=== PATIENT | female | born 1960 | race Caucasian/White ===

== ENCOUNTER 2018-03-30 06:35 | Day surgery (SDC) | payer MEDICARE ==
[2018-03-30] MEDS ORDERED: DIPRIVAN 200 MG/20 ML IV ONE (06:36)
[2018-03-30] MEDS ORDERED: Ketamine HCl 50 MG/ML IV ONE (06:36)
[2018-03-30] MEDS ORDERED: Lactated Ringers 1,000 ML IV SCH (07:30)
--- NOTE | 2018-03-30 09:02 | OP ---
SURGERY DATE/TIME: 03/30/2018812 PREOPERATIVE DIAGNOSIS: Dysphagia particularly to solids and vomiting, history of pancreatitis. POSTOPERATIVE DIAGNOSIS: Gastritis. PROCEDURE: Esophagogastroduodenoscopy with biopsy. SURGEON: Dr. Tian. ANESTHESIA: Medications were given by the anesthesia department. BRIEF HISTORY: The patient is a 57 year old white female presenting now for epigastric pain and complaints of dysphagia both in the throat and deep in the chest. The patient reports a history of pancreatitis. She does also complain of Crohn's colitis and takes aspirin on a regular basis. The patient was suggested to have endoscopic evaluation and she was appraised of the risks of the procedure including the risk of perforation, phlebitis, untoward reaction to medication, bleeding and missed lesions. The patient verbalized her understanding and desired to have the procedure performed. DESCRIPTION OF PROCEDURE: The patient was given the medications by the anesthesia department. She had continuous pulse oximetry, ECG monitoring, intermittent blood pressure monitoring and tidal CO2 monitoring during the examination. She was placed in the left lateral decubitus position. A bite block was placed. A flexible Olympus gastroscope was used to intubate the oropharynx. A view of the esophagus was normal throughout its length. The stomach was entered where normal gastric rugal folds were seen. There was a generalized erythema throughout the stomach. No erosions or ulcerations were noted. The scope was passed along the greater curvature of the stomach to the antrum. The pylorus was encountered and intubated. Duodenum inspected and found to be normal. The scope was withdrawn towards the stomach. Again, a retroflex view was obtained of the lesser curvature, fundus and cardia regions of the stomach and these appeared to be normal. The scope was then redirected towards the gastric antrum. Biopsies obtained to rule out the presence of Helicobacter pylori-type organisms. The scope was then removed from the patient who tolerated the procedure well and was sent back to outpatient recovery in good condition.
[2018-03-30 09:04] VITALS: O2SAT 98
[2018-03-30 09:36] VITALS: BP 133/78; PULSE 94
[2018-03-30] MEDS ORDERED: Sodium Chloride 0.9% 10 ML FLUSH Syringe PORT FLUSH PRN (09:47)
== END 2018-03-30 11:15 | disposition home or self-care (01) ==
LOC: SDC 06:35
PROVIDERS: ATTEND Family Medicine
DX: K29.70 Gastritis, unspecified, without bleeding (principal); R13.10 Dysphagia, unspecified; Z86.39 Personal history of other endocrine, nutritional and metabolic disease
CPT/HCPCS: 88305; J1642; J2704

== ENCOUNTER 2018-07-04 12:40 | Day surgery (SDC) | payer MEDICARE ==
[2012-11-09 10:35] VITALS: BP 129/87
[2018-07-04] MEDS ORDERED: Xylocaine 1% Vial 30 ML PF IJ ONE (12:41)
[2018-07-04] MEDS ORDERED: Depo-Medrol 40 MG/ML IM ONE (12:41)
[2018-07-04] MEDS ORDERED: Marcaine 0.5% SDV 10 ML IJ ONE (12:41)
--- NOTE | 2018-07-04 15:30 | XRAY ---
13 seconds of fluoroscopy was used in surgery for bilateral sacroiliac joint injection.
--- NOTE | 2018-07-04 15:32 | XRAY ---
Indication: Bilateral SI joint injection. Intraoperative fluoroscopy was provided for 13 seconds. 4 digital spot images submitted for interpretation demonstrates posterior needle tips projecting over the inferior left and right SI joints. Correlate with intraoperative findings/report.
== END 2018-07-04 14:17 | disposition home or self-care (01) ==
LOC: SDC-PAIN 12:40
PROVIDERS: ATTEND Psychiatry & Neurology Pain Medicine
DX: M46.1 Sacroiliitis, not elsewhere classified (principal); E03.9 Hypothyroidism, unspecified; M10.9 Gout, unspecified; F31.9 Bipolar disorder, unspecified; I10 Essential (primary) hypertension; J45.909 Unspecified asthma, uncomplicated; F41.8 Other specified anxiety disorders; K50.90 Crohn's disease, unspecified, without complications; K86.1 Other chronic pancreatitis; K44.9 Diaphragmatic hernia without obstruction or gangrene; I25.10 Atherosclerotic heart disease of native coronary artery without angina pectoris; Z79.899 Other long term (current) drug therapy
CPT/HCPCS: 72202; 77002; G0260; 27096; J1030; J2001

== ENCOUNTER 2018-09-12 14:28 | Day surgery (SDC) | payer MEDICARE ==
[2012-11-09 10:35] VITALS: BP 129/87
[2018-09-12] MEDS ORDERED: Marcaine 0.5% SDV 10 ML IJ ONE (14:29)
[2018-09-12] MEDS ORDERED: Xylocaine 1% Vial 30 ML PF IJ ONE (14:29)
[2018-09-12] MEDS ORDERED: Depo-Medrol 40 MG/ML IM ONE (14:29)
[2018-09-12] MEDS ORDERED: Lactated Ringers 1,000 ML IV ONE (16:36)
--- NOTE | 2018-09-12 16:46 | XRAY ---
Indication: Bilateral SI joint injection. Intraoperative fluoroscopy was provided for 12 seconds. 4 digital spot images submitted for interpretation demonstrates posterior needle tips projecting over the inferior left and right SI joints. Correlate with intraoperative findings/report.
--- NOTE | 2018-09-12 16:51 | XRAY ---
12 seconds fluoroscopy time in surgery for bilateral S-I joints.
== END 2018-09-12 15:43 | disposition home or self-care (01) ==
LOC: SDC-PAIN 14:28
PROVIDERS: ATTEND Psychiatry & Neurology Pain Medicine
DX: M46.1 Sacroiliitis, not elsewhere classified (principal); E03.9 Hypothyroidism, unspecified; M10.9 Gout, unspecified; F31.9 Bipolar disorder, unspecified; F41.8 Other specified anxiety disorders; I10 Essential (primary) hypertension; I25.10 Atherosclerotic heart disease of native coronary artery without angina pectoris; K50.90 Crohn's disease, unspecified, without complications; J45.909 Unspecified asthma, uncomplicated; K44.9 Diaphragmatic hernia without obstruction or gangrene; Z79.899 Other long term (current) drug therapy
CPT/HCPCS: 27096; 72202; 77002; J1030; J2001; G0260

== ENCOUNTER 2018-10-03 13:01 | Day surgery (SDC) | payer MEDICARE ==
[2012-11-09 10:35] VITALS: BP 129/87
[2018-10-03] MEDS ORDERED: Depo-Medrol 40 MG/ML IM ONE (13:02)
[2018-10-03] MEDS ORDERED: Xylocaine 1% Vial 30 ML PF IJ ONE (13:02)
[2018-10-03] MEDS ORDERED: Xylocaine-Mpf 2% 5 Ml Vial IJ ONE (13:02)
--- NOTE | 2018-10-03 16:04 | XRAY ---
Indication: Bilateral L4-S1 MBB. Intraoperative fluoroscopy was provided for 19 seconds. Single digital spot image submitted for interpretation demonstrates posterior needle tips projecting over the expected course of the left and right L4-S1 nerve roots. Correlate with intraoperative findings/report.
--- NOTE | 2018-10-03 16:10 | XRAY ---
19 seconds fluoroscopy time in surgery for bilateral L4-S1 MBB.
== END 2018-10-03 14:32 | disposition home or self-care (01) ==
LOC: SDC-PAIN 13:01
PROVIDERS: ATTEND Psychiatry & Neurology Pain Medicine
DX: M47.816 Spondylosis without myelopathy or radiculopathy, lumbar region (principal); E03.9 Hypothyroidism, unspecified; M10.9 Gout, unspecified; F31.9 Bipolar disorder, unspecified; F41.8 Other specified anxiety disorders; I10 Essential (primary) hypertension; K86.1 Other chronic pancreatitis; J45.909 Unspecified asthma, uncomplicated; K44.9 Diaphragmatic hernia without obstruction or gangrene; I25.10 Atherosclerotic heart disease of native coronary artery without angina pectoris; K51.90 Ulcerative colitis, unspecified, without complications
CPT/HCPCS: 64493; 64494; 72020; 77002; J1030; J2001

== ENCOUNTER 2018-10-31 14:48 | Day surgery (SDC) | payer MEDICARE ==
[2012-11-09 10:35] VITALS: BP 129/87
[2018-10-31] MEDS ORDERED: Xylocaine 1% Vial 30 ML PF IJ ONE (14:49)
[2018-10-31] MEDS ORDERED: Marcaine 0.5% SDV 10 ML IJ ONE (14:49)
[2018-10-31] MEDS ORDERED: Depo-Medrol 40 MG/ML IM ONE (14:49)
--- NOTE | 2018-11-01 08:35 | XRAY ---
16 seconds fluoroscopy time in surgery for bilateral L4-S1 MBB.
== END 2018-10-31 17:17 | disposition home or self-care (01) ==
LOC: SDC-PAIN 14:48
PROVIDERS: ATTEND Psychiatry & Neurology Pain Medicine
DX: M47.816 Spondylosis without myelopathy or radiculopathy, lumbar region (principal); E03.9 Hypothyroidism, unspecified; M10.9 Gout, unspecified; I10 Essential (primary) hypertension; J45.909 Unspecified asthma, uncomplicated; F41.8 Other specified anxiety disorders; K86.1 Other chronic pancreatitis; I25.10 Atherosclerotic heart disease of native coronary artery without angina pectoris; F31.9 Bipolar disorder, unspecified; Z79.899 Other long term (current) drug therapy
CPT/HCPCS: 72020; 77002; J1030; J2001

== ENCOUNTER 2018-12-05 12:04 | Day surgery (SDC) | payer MEDICARE ==
[2012-11-09 10:35] VITALS: BP 129/87
[2018-12-05] MEDS ORDERED: Xylocaine 1% Vial 30 ML PF IJ ONE (12:05)
[2018-12-05] MEDS ORDERED: Marcaine 0.5% SDV 10 ML IJ ONE (12:05)
[2018-12-05] MEDS ORDERED: Depo-Medrol 40 MG/ML IM ONE (12:05)
[2018-12-05] MEDS ORDERED: Lactated Ringers 1,000 ML IV ONE (12:51)
--- NOTE | 2018-12-05 15:06 | XRAY ---
Indication: Right L4-S1 RFA. Intraoperative fluoroscopy was provided for 20 seconds. 3 digital spot images submitted for interpretation demonstrate posterior needle tips projecting over the expected course of the right L4-S1 nerve roots. Correlate with intraoperative findings/report.
--- NOTE | 2018-12-05 15:52 | XRAY ---
20 seconds fluoroscopy time in surgery for right L4-S1 RFA.
== END 2018-12-05 13:50 | disposition home or self-care (01) ==
LOC: SDC-PAIN 12:04
PROVIDERS: ATTEND Psychiatry & Neurology Pain Medicine
DX: M47.816 Spondylosis without myelopathy or radiculopathy, lumbar region (principal); E03.9 Hypothyroidism, unspecified; M10.9 Gout, unspecified; I10 Essential (primary) hypertension; K86.1 Other chronic pancreatitis; F41.8 Other specified anxiety disorders; K44.9 Diaphragmatic hernia without obstruction or gangrene; J45.909 Unspecified asthma, uncomplicated; K51.90 Ulcerative colitis, unspecified, without complications; F31.9 Bipolar disorder, unspecified; Z79.899 Other long term (current) drug therapy
CPT/HCPCS: 64635; 64636; 72100; 77002; J1030; J1642; J2001

== ENCOUNTER 2019-01-09 15:10 | Day surgery (SDC) | payer MEDICARE ==
[2012-11-09 10:35] VITALS: BP 129/87
[2019-01-09] MEDS ORDERED: Marcaine 0.5% SDV 10 ML IJ ONE (15:11)
[2019-01-09] MEDS ORDERED: Xylocaine 1% Vial 30 ML PF IJ ONE (15:11)
[2019-01-09] MEDS ORDERED: Depo-Medrol 40 MG/ML IM ONE (15:11)
[2019-01-09] MEDS ORDERED: Lactated Ringers 1,000 ML IV ONE (18:23)
--- NOTE | 2019-01-09 19:27 | XRAY ---
Indication: Left L4-S1 RFA. Intraoperative fluoroscopy was provided for 16 seconds. 4 digital spot images submitted for interpretation demonstrates posterior needle tips projecting over the expected course of the left L4-S1 nerve roots. Correlate with intraoperative findings/report.
--- NOTE | 2019-01-09 19:39 | XRAY ---
16 seconds fluoroscopy time in surgery for left L4-S1 RFA.
== END 2019-01-09 17:43 | disposition home or self-care (01) ==
LOC: SDC-PAIN 15:10
PROVIDERS: ATTEND Psychiatry & Neurology Pain Medicine
DX: M47.816 Spondylosis without myelopathy or radiculopathy, lumbar region (principal); I10 Essential (primary) hypertension; E03.9 Hypothyroidism, unspecified; M10.9 Gout, unspecified; F31.9 Bipolar disorder, unspecified; F41.8 Other specified anxiety disorders; K50.90 Crohn's disease, unspecified, without complications; K86.1 Other chronic pancreatitis; K44.9 Diaphragmatic hernia without obstruction or gangrene; K51.90 Ulcerative colitis, unspecified, without complications; Z79.899 Other long term (current) drug therapy
CPT/HCPCS: 64635; 64636; 72100; 77002; J1030; J1642; J2001

== ENCOUNTER 2019-03-20 12:38 | Day surgery (SDC) | payer MEDICARE ==
[2012-11-09 10:35] VITALS: BP 129/87
[2019-03-20] MEDS ORDERED: Marcaine 0.5% SDV 10 ML IJ ONE (12:39)
[2019-03-20] MEDS ORDERED: Depo-Medrol 40 MG/ML IM ONE (12:39)
[2019-03-20] MEDS ORDERED: Xylocaine 1% Vial 30 ML PF IJ ONE (12:39)
--- NOTE | 2019-03-20 16:48 | XRAY ---
Indication: Bilateral SI joint injection. Intraoperative fluoroscopy was provided for 12 seconds. 5 digital spot images submitted for interpretation demonstrates posterior needle tips projecting over the inferior left and right SI joints. Correlate with intraoperative findings/report.
--- NOTE | 2019-03-20 16:51 | XRAY ---
12 seconds fluoroscopy time in surgery for bilateral SI joint injections.
== END 2019-03-20 14:46 | disposition home or self-care (01) ==
LOC: SDC-PAIN 12:38
PROVIDERS: ATTEND Psychiatry & Neurology Pain Medicine
DX: M46.1 Sacroiliitis, not elsewhere classified (principal); M54.12 Radiculopathy, cervical region; E03.9 Hypothyroidism, unspecified; M10.9 Gout, unspecified; F31.9 Bipolar disorder, unspecified; F41.8 Other specified anxiety disorders; K50.90 Crohn's disease, unspecified, without complications; K86.1 Other chronic pancreatitis; I10 Essential (primary) hypertension; J45.909 Unspecified asthma, uncomplicated; K44.9 Diaphragmatic hernia without obstruction or gangrene; Z79.899 Other long term (current) drug therapy
CPT/HCPCS: 27096; 72202; 77002; J1030; J2001; G0260

== ENCOUNTER 2019-04-17 12:28 | Day surgery (SDC) | payer MEDICARE ==
[2012-11-09 10:35] VITALS: BP 129/87
[2019-04-17] MEDS ORDERED: Xylocaine 1% Vial 30 ML PF IJ ONE (12:29)
[2019-04-17] MEDS ORDERED: Depo-Medrol 40 MG/ML IM ONE (12:29)
[2019-04-17] MEDS ORDERED: Marcaine 0.5% SDV 10 ML IM ONE (12:29)
[2019-04-17] MEDS ORDERED: Lactated Ringers 1,000 ML IV ONE (14:04)
--- NOTE | 2019-04-17 15:22 | XRAY ---
Indication: Right SI joint RFA. Intraoperative fluoroscopy was provided for 42 seconds. 3 digital spot images submitted for interpretation demonstrates 4 posterior needle tips projecting over the right sacrum. Correlate with intraoperative findings/report.
--- NOTE | 2019-04-17 16:43 | XRAY ---
42 seconds fluoroscopy time in surgery for cervical BERTRAM.
== END 2019-04-17 14:00 | disposition home or self-care (01) ==
LOC: SDC-PAIN 12:28
PROVIDERS: ATTEND Psychiatry & Neurology Pain Medicine
DX: M46.1 Sacroiliitis, not elsewhere classified (principal); E03.9 Hypothyroidism, unspecified; I10 Essential (primary) hypertension; M10.9 Gout, unspecified; F31.9 Bipolar disorder, unspecified; F41.8 Other specified anxiety disorders; K86.1 Other chronic pancreatitis; J45.909 Unspecified asthma, uncomplicated; I25.10 Atherosclerotic heart disease of native coronary artery without angina pectoris; Z79.899 Other long term (current) drug therapy
CPT/HCPCS: 64625; 72202; 77002; J1030; J1642; J2001

== ENCOUNTER 2020-01-01 11:01 | Day surgery (SDC) | payer MEDICARE ==
[2012-11-09 10:35] VITALS: BP 129/87
[2020-01-01] MEDS ORDERED: Depo-Medrol 40 MG/ML IM ONE (11:02)
[2020-01-01] MEDS ORDERED: BUPIVACAINE 0.5% VIAL IJ ONE (11:02)
[2020-01-01] MEDS ORDERED: Sodium Chloride 0.9% 10 ML FLUSH Syringe PORT FLUSH PRN (12:59)
--- NOTE | 2020-01-01 14:02 | XRAY ---
Indication: Bilateral L4-S1 MBB. Intraoperative fluoroscopy was provided for 15 seconds. Single digital spot image submitted for interpretation demonstrates posterior needle tips projecting over the expected left and right L4-S1 nerve roots. Correlate with intraoperative findings/report.
--- NOTE | 2020-01-01 14:07 | XRAY ---
15 seconds fluoroscopy time in surgery for bilateral SI joint injections.
== END 2020-01-01 12:37 | disposition home or self-care (01) ==
LOC: SDC-PAIN 11:01
PROVIDERS: ATTEND Psychiatry & Neurology Pain Medicine
DX: M47.816 Spondylosis without myelopathy or radiculopathy, lumbar region (principal); E03.9 Hypothyroidism, unspecified; M10.9 Gout, unspecified; F31.9 Bipolar disorder, unspecified; K50.90 Crohn's disease, unspecified, without complications; K86.1 Other chronic pancreatitis; I10 Essential (primary) hypertension; I25.10 Atherosclerotic heart disease of native coronary artery without angina pectoris; Z79.899 Other long term (current) drug therapy
CPT/HCPCS: 64493; 64494; 72020; 77002; 96523; J1030; J1642

== ENCOUNTER 2020-03-25 13:49 | Day surgery (SDC) | payer MEDICARE ==
[2012-11-09 10:35] VITALS: BP 129/87
[2020-03-25] MEDS ORDERED: Xylocaine 1% Vial 30 ML PF IJ ONE (13:50)
[2020-03-25] MEDS ORDERED: Depo-Medrol 40 MG/ML IM ONE (13:50)
[2020-03-25] MEDS ORDERED: Sodium Chloride 0.9(Preservative Free) 10 ML IJ ONE (13:50)
--- NOTE | 2020-03-25 16:45 | XRAY ---
Indication: Right L4-S1 transforaminal BERTRAM. Intraoperative fluoroscopy provided for 26 seconds. 4 digital spot images submitted for interpretation demonstrates posterior needle tips projecting over the expected right L4 and L5 nerve roots. Small amount of contrast injected for needle tip placement. Correlate with intraoperative findings/report.
--- NOTE | 2020-03-25 16:45 | XRAY ---
26 seconds of fluoroscopy was used in surgery for a right L4-L5 and L5-S1 transforaminal BERTRAM.
== END 2020-03-25 16:15 | disposition home or self-care (01) ==
LOC: SDC-PAIN 13:49
PROVIDERS: ATTEND Psychiatry & Neurology Pain Medicine
DX: M54.16 Radiculopathy, lumbar region (principal); I10 Essential (primary) hypertension; I25.10 Atherosclerotic heart disease of native coronary artery without angina pectoris; E03.9 Hypothyroidism, unspecified; M10.9 Gout, unspecified; F31.9 Bipolar disorder, unspecified; K50.90 Crohn's disease, unspecified, without complications; K86.1 Other chronic pancreatitis; J45.909 Unspecified asthma, uncomplicated; K44.9 Diaphragmatic hernia without obstruction or gangrene; Z79.899 Other long term (current) drug therapy
CPT/HCPCS: 64483; 64484; 72100; 77003; J1030; J2001; Q9966

== ENCOUNTER 2020-05-20 13:40 | Day surgery (SDC) | payer MEDICARE ==
[2012-11-09 10:35] VITALS: BP 129/87
[2020-05-20] MEDS ORDERED: BUPIVACAINE 0.5% VIAL IJ ONE (13:41)
[2020-05-20] MEDS ORDERED: Decadron 4 MG INJ IV ONE (13:41)
[2020-05-20] MEDS ORDERED: Depo-Medrol 40 MG/ML IM ONE (13:41)
[2020-05-20] MEDS ORDERED: Xylocaine 1% Vial 30 ML PF IJ ONE (13:41)
--- NOTE | 2020-05-20 17:11 | XRAY ---
24 seconds of fluoroscopy was used in surgery for a right SI joint and right piriformis muscle injection.
--- NOTE | 2020-05-20 17:16 | XRAY ---
Indication: Right SI joint and piriformis muscle injection. Intraoperative fluoroscopy provided for 24 seconds. 3 digital spot images submitted for interpretation demonstrates posterior needle tip projecting over the inferior right SI joint. Second needle tip projects over the expected right piriformis muscle with small amount of contrast injected for needle tip placement. Correlate with intraoperative findings/report.
== END 2020-05-20 16:11 | disposition home or self-care (01) ==
LOC: SDC-PAIN 13:40
PROVIDERS: ATTEND Psychiatry & Neurology Pain Medicine
DX: M46.1 Sacroiliitis, not elsewhere classified (principal); M60.9 Myositis, unspecified; E03.9 Hypothyroidism, unspecified; M10.9 Gout, unspecified; I10 Essential (primary) hypertension; I25.10 Atherosclerotic heart disease of native coronary artery without angina pectoris; K50.90 Crohn's disease, unspecified, without complications; K44.9 Diaphragmatic hernia without obstruction or gangrene; J45.909 Unspecified asthma, uncomplicated; Z79.899 Other long term (current) drug therapy; K86.1 Other chronic pancreatitis
CPT/HCPCS: 20552; 27096; 72202; 77002; G0260; J1030; J1100; J2001; Q9966

== ENCOUNTER 2020-08-12 10:34 | Day surgery (SDC) | payer MEDICARE ==
[2012-11-09 10:35] VITALS: BP 129/87
[2020-08-12] MEDS ORDERED: LIDOCAINE HCL 2% 100 MG/5 ML IJ ONE (10:35)
[2020-08-12] MEDS ORDERED: DIPRIVAN 200 MG/20 ML IV ONE (10:35)
--- NOTE | 2020-08-12 14:57 | XRAY ---
Indication: Right C2-C5 MBB. Intraoperative fluoroscopy provided for 20 seconds. 2 digital spot images submitted for interpretation demonstrates posterior needle tips projecting over the expected right C2-C5 nerve roots. Correlate with intraoperative findings/report.
--- NOTE | 2020-08-12 15:06 | XRAY ---
20 seconds of fluoroscopy was used in surgery for a right C2-C3, C3-C4, C4-C5 MBB.l
[2020-08-12] MEDS ORDERED: Lactated Ringers 1,000 ML IV ONE (16:02)
== END 2020-08-12 12:10 | disposition home or self-care (01) ==
LOC: SDC-PAIN 10:34
PROVIDERS: ATTEND Psychiatry & Neurology Pain Medicine
DX: M47.812 Spondylosis without myelopathy or radiculopathy, cervical region (principal); E03.9 Hypothyroidism, unspecified; M10.9 Gout, unspecified; F41.9 Anxiety disorder, unspecified; F32.9 Major depressive disorder, single episode, unspecified; K86.1 Other chronic pancreatitis; I10 Essential (primary) hypertension; I25.10 Atherosclerotic heart disease of native coronary artery without angina pectoris; Z79.899 Other long term (current) drug therapy
CPT/HCPCS: 64490; 64491; 64492; 72040; 77002; J1642; J2704

== ENCOUNTER 2021-02-17 14:22 | Day surgery (SDC) | payer MEDICARE ==
[2012-11-09 10:35] VITALS: BP 129/87
[2021-02-17] MEDS ORDERED: BUPIVACAINE 0.5% VIAL IJ ONE (14:23)
[2021-02-17] MEDS ORDERED: Xylocaine 1% Vial 30 ML PF IJ ONE (14:23)
[2021-02-17] MEDS ORDERED: Depo-Medrol 40 MG/ML IM ONE (14:23)
--- NOTE | 2021-02-17 18:44 | XRAY ---
Indication: Left L4-S1 RFA. Intraoperative fluoroscopy provided for 23 seconds. 3 digital spot image submitted for interpretation demonstrates posterior needle tips projecting over the expected left L4-S1 nerve roots. Correlate with intraoperative findings/report.
--- NOTE | 2021-02-18 09:17 | XRAY ---
23 seconds fluoroscopy time in surgery for left L4-S1 RFA.
== END 2021-02-17 16:28 | disposition home or self-care (01) ==
LOC: SDC-PAIN 14:22
PROVIDERS: ATTEND Psychiatry & Neurology Pain Medicine
DX: M47.816 Spondylosis without myelopathy or radiculopathy, lumbar region (principal); Z79.899 Other long term (current) drug therapy
CPT/HCPCS: 64635; 64636; 72100; 77002; J1030; J1642; J2001

== ENCOUNTER 2021-02-24 13:12 | Day surgery (SDC) | payer MEDICARE ==
[2012-11-09 10:35] VITALS: BP 129/87
[2021-02-24] MEDS ORDERED: BUPIVACAINE 0.5% VIAL IJ ONE (13:13)
[2021-02-24] MEDS ORDERED: Xylocaine 1% Vial 30 ML PF IJ ONE (13:13)
[2021-02-24] MEDS ORDERED: Depo-Medrol 40 MG/ML IM ONE (13:13)
[2021-02-24] MEDS ORDERED: Lactated Ringers 1,000 ML IV ONE (15:29)
--- NOTE | 2021-02-24 17:00 | XRAY ---
Indication: Right L4-S1 RFA. Intraoperative fluoroscopy provided for 24 seconds. 3 digital spot image submitted for interpretation demonstrates posterior needle tips projecting over the expected right L4-S1 nerve roots. Correlate with intraoperative findings/report.
--- NOTE | 2021-02-24 17:05 | XRAY ---
24 seconds of fluoroscopy was used in surgery for a right L4-S1 RFA.
== END 2021-02-24 16:30 | disposition home or self-care (01) ==
LOC: SDC-PAIN 13:12
PROVIDERS: ATTEND Psychiatry & Neurology Pain Medicine
DX: M47.816 Spondylosis without myelopathy or radiculopathy, lumbar region (principal); I10 Essential (primary) hypertension; Z79.899 Other long term (current) drug therapy
CPT/HCPCS: 64635; 64636; 72100; 77002; J1030; J1642; J2001

== ENCOUNTER 2021-12-01 15:53 | Day surgery (SDC) | payer MEDICARE, SELFPAY ==
[2012-11-09 10:35] VITALS: BP 129/87
[2021-12-01] MEDS ORDERED: Sodium Chloride 0.9(Preservative Free) 10 ML IJ ONE (15:54)
[2021-12-01] MEDS ORDERED: Decadron 4 MG INJ IV ONE (15:54)
[2021-12-01] MEDS ORDERED: XYLOCAINE-MPF 1% 5ML SDV IJ ONE (15:54)
[2021-12-01] MEDS ORDERED: Lactated Ringers 1,000 ML IV ONE (17:43)
--- NOTE | 2021-12-01 19:43 | XRAY ---
Indication: Cervical BERTRAM. Intraoperative fluoroscopy provided for 34 seconds. 4 digital spot images submitted for interpretation demonstrates posterior needle tip projecting just posterior to cervical thoracic junction. Small amount of contrast injected for needle tip placement. Correlate with intraoperative findings/report.
--- NOTE | 2021-12-02 10:58 | XRAY ---
34 seconds of fluoroscopy was used in surgery for a cervical BERTRAM.
== END 2021-12-01 18:15 | disposition home or self-care (01) ==
LOC: SDC-PAIN 15:53
PROVIDERS: ATTEND Psychiatry & Neurology Pain Medicine
DX: M54.12 Radiculopathy, cervical region (principal); Z79.899 Other long term (current) drug therapy
CPT/HCPCS: 62321; 72040; 77003; J1100; J1642; Q9966

== ENCOUNTER 2022-05-25 07:41 | Day surgery (SDC) | payer MEDICARE ==
[2012-11-09 10:35] VITALS: BP 129/87
[2022-05-25] MEDS ORDERED: Decadron 4 MG INJ IV ONE (07:42)
[2022-05-25] MEDS ORDERED: XYLOCAINE 1% HCL 20 ML MDV IJ ONE (07:42)
--- NOTE | 2022-05-25 10:22 | XRAY ---
Indication: Right piriformis injection. Intraoperative fluoroscopy provided for 11 seconds. Single digital spot image submitted for interpretation demonstrates posterior needle tip projecting over the expected right piriformis muscle. Small amount of contrast injected for needle tip placement. Correlate with intraoperative findings/report.
--- NOTE | 2022-05-25 12:44 | XRAY ---
11 seconds of fluoroscopy was used in surgery for a right piriformis injection.
[2022-05-25] MEDS ORDERED: Lactated Ringers 1,000 ML IV ONE (13:12)
== END 2022-05-25 09:10 | disposition home or self-care (01) ==
LOC: SDC-PAIN 07:41
PROVIDERS: ATTEND Psychiatry & Neurology Pain Medicine
DX: M79.18 Myalgia, other site (principal)
CPT/HCPCS: 20553; 72170; 77002; J1100; Q9966

== ENCOUNTER 2022-06-29 15:46 | Day surgery (SDC) | payer MEDICARE ==
[2012-11-09 10:35] VITALS: BP 129/87
[2022-06-29] MEDS ORDERED: BUPIVACAINE 0.5% VIAL IJ ONE (15:47)
[2022-06-29] MEDS ORDERED: Depo-Medrol 40 MG/ML IM ONE (15:47)
[2022-06-29] MEDS ORDERED: LIDOCAINE HCL 1% 50 MG/5 ML VL PF IJ ONE (15:47)
[2022-06-29] MEDS ORDERED: Lactated Ringers 1,000 ML IV ONE (16:51)
--- NOTE | 2022-06-29 18:22 | XRAY ---
Indication: Right L4-S1 RFA. Intraoperative fluoroscopy provided for 33 seconds. 6 digital spot image submitted for interpretation demonstrates posterior needle tips projecting over the expected right L4-S1 nerve roots. Correlate with intraoperative findings/report.
--- NOTE | 2022-06-30 17:15 | XRAY ---
33 seconds of fluoroscopy was used in surgery for a right L4-S1 RFA.
== END 2022-06-29 17:33 | disposition home or self-care (01) ==
LOC: SDC-PAIN 15:46
PROVIDERS: ATTEND Psychiatry & Neurology Pain Medicine
DX: M47.816 Spondylosis without myelopathy or radiculopathy, lumbar region (principal); Z79.899 Other long term (current) drug therapy
CPT/HCPCS: 64635; 64636; 72100; 77002; J1030; J1642; J2001

== ENCOUNTER 2022-07-13 14:49 | Day surgery (SDC) | payer MEDICARE ==
[2012-11-09 10:35] VITALS: BP 129/87
[2022-07-13] MEDS ORDERED: Depo-Medrol 40 MG/ML IM ONE (14:50)
[2022-07-13] MEDS ORDERED: BUPIVACAINE 0.5% VIAL IJ ONE (14:50)
[2022-07-13] MEDS ORDERED: LIDOCAINE HCL 1% 50 MG/5 ML VL PF IJ ONE (14:50)
[2022-07-13] MEDS ORDERED: Lactated Ringers 1,000 ML IV ONE (16:05)
--- NOTE | 2022-07-13 23:30 | XRAY ---
Indication: Left L4-S1 RFA. Intraoperative fluoroscopy provided for 18 seconds. 4 digital spot image submitted for interpretation demonstrates posterior needle tips projecting over the expected left L4-S1 nerve roots. Correlate with intraoperative findings/report.
--- NOTE | 2022-07-14 17:33 | XRAY ---
18 seconds of fluoroscopy was used in surgery for a left L4-S1 RFA.
== END 2022-07-13 16:15 | disposition home or self-care (01) ==
LOC: SDC-PAIN 14:49
PROVIDERS: ATTEND Psychiatry & Neurology Pain Medicine
DX: M47.816 Spondylosis without myelopathy or radiculopathy, lumbar region (principal); Z79.899 Other long term (current) drug therapy
CPT/HCPCS: 64635; 64636; 72100; 77002; J1030; J1642; J2001

== ENCOUNTER 2022-10-20 09:52 | Day surgery (SDC) | payer MEDICARE, SELFPAY ==
[2012-11-09 10:35] VITALS: BP 129/87
[2022-10-20] MEDS ORDERED: BUPIVACAINE 0.5% VIAL IJ ONE (09:53)
[2022-10-20] MEDS ORDERED: LIDOCAINE HCL 1% 50 MG/5 ML VL PF IJ ONE (09:53)
[2022-10-20] MEDS ORDERED: Depo-Medrol 40 MG/ML IM ONE (09:53)
--- NOTE | 2022-10-20 14:08 | XRAY ---
Indication: Right L shoulder and subacromial bursa injection. Intraoperative fluoroscopy provided for 14 seconds. 2 digital spot image submitted for interpretation demonstrates needle tip projecting over the right glenohumeral joint superiorly. Second needle tip subacromial. Small amount of contrast injected for needle tip placement. Correlate with intraoperative findings/report.
--- NOTE | 2022-10-20 14:43 | XRAY ---
14 seconds of fluoroscopy was used in surgery for a right intra-articular shoulder and subacromial bursa injection.
== END 2022-10-20 11:00 | disposition home or self-care (01) ==
LOC: SDC-PAIN 09:52
PROVIDERS: ATTEND Psychiatry & Neurology Pain Medicine
DX: M19.011 Primary osteoarthritis, right shoulder (principal); M75.51 Bursitis of right shoulder; Z79.899 Other long term (current) drug therapy
CPT/HCPCS: 20610; 73030; 77002; J1030; J2001; Q9966

== ENCOUNTER 2022-11-04 17:09 | Emergency (ER) | payer MEDICARE ==
[2022-11-04] MEDS ORDERED: Hydromorphone 1 mg/ml Injection IV ONE (17:21)
[2022-11-04] MEDS ORDERED: Compazine 10 MG/2 ML IV ONE (17:21)
[2022-11-04] MEDS ORDERED: Sodium Chloride 0.9% 1000 ML 1,000 ML IV STA (17:21)
--- NOTE | 2022-11-04 17:21 | ERPHSYRPT ---
- History of Present Illness Time Seen by Provider: 11/04/22 17:20 Historian: patient Exam Limitations: no limitations Patient Subjective Stated Complaint: Pt states "I have crohn's and my belly has been killing me since last night." Triage Nursing Assessment: PT presented alert and oriented X 3, skin pwd. Pt ambulates with an upright steady gait, able to speak in clear full sentences pt guarding her abdomen. Physician History: This is a 61-year-old white female patient of Dr. Tian who has a history of Crohn's disease. She began having severe abdominal pain yesterday. Today her symptoms are worse. Her abdominal pain is generalized and sharp stabbing and intermittently cramping. Patient has oxycodone medication at home. Patient denies chest pain and she denies shortness of breath. She has not had any v omiting or diarrhea. Patient does have a history of colitis, she has a history of pancreatitis, she has a history of asthma and COPD. She also has a history of gastroesophageal reflux disease, anxiety and depression. Timing/Duration: yesterday, worse Quality: cramping, sharpness, stabbing Abdominal Pain Onset Location: generalized abdomen Pain Radiation: no radiation Severity of Pain-Max: moderate Severity of Pain-Current: moderate Modifying Factors: Improves With: nothing Associated Symptoms: denies symptoms Previous symptoms: same symptoms as today, no recent treatment Allergies/Adverse Reactions: alosetron HCl [From Lotronex] Allergy (Severe, Verified 09/21/22 15:17) causes constipation and pain aripiprazole [From Abilify] Allergy (Severe, Verified 09/21/22 15:17) infliximab [From Remicade] Allergy (Severe, Verified 09/21/22 15:17) alprazolam [From Xanax] Allergy (Intermediate, Verified 09/21/22 15:17) n&v hallucinations celecoxib [From Celebrex] Allergy (Mild, Verified 09/21/22 15:17) Nausea and Vomiting adalimumab [From Humira] Allergy (Verified 09/21/22 15:17) azathioprine sodium [From Imuran] Allergy (Verified 09/21/22 15:17) duloxetine HCl [From Cymbalta] Allergy (Verified 09/21/22 15:17) fentanyl [From Duragesic] Allergy (Verified 09/21/22 15:17) possible reaction from the adhesive not the drug breakout of skin around it rofecoxib [From Vioxx] Adverse Reaction (Mild, Verified 09/21/22 15:17) Nausea and Vomiting NSAIDS (Non-Steroidal Anti-Inflamma Adverse Reaction (Verified 09/21/22 15:17) contraindicated as pt has chrones dx and colitis Home Medications: Promethazine HCl 25 mg [Phenergan 25 mg] 25 mg PO Q8H PRN 08/10/12 [History] Nortriptyline HCl 50 mg PO HS 10/29/15 [History] Albuterol Sulfate [Ventolin Hfa] 2 puffs IH BID 09/30/16 [History] Cyclobenzaprine HCl 10 mg [Cyclobenzaprine 10 MG] 10 mg PO TID 05/15/18 [History] Oxycodone HCl/Acetaminophen [Percocet 10-325 mg Tablet] 1 each PO QID 07/19/18 [History] Calcium Citrate/Vitamin D2 [Marky-Citrate Plus Vitamin D Tab] 1 tablet PO DAILY 11/27/20 [History] Magnesium Oxide 400 mg [Mag-Ox 400] 400 mg PO DAILY 11/27/20 [History] Omeprazole 40 mg PO DAILY 11/27/20 [History] Vedolizumab [Entyvio] 300 mg IV UD 12/10/21 [History] Collagen/Biotin/Ascorbic Acid [Collagen 1500 Plus C Capsule] 1 tab PO DAILY 01/07/22 [History] Potassium Chloride 10 meq PO DAILY 01/07/22 [History] Gabapentin [Neurontin ] 800 mg PO TID 05/02/22 [History] Hx Tetanus, Diphtheria Vaccination/Date Given: Yes Hx Influenza Vaccination/Date Given: Yes Hx Pneumococcal Vaccination/Date Given: Yes Immunizations Up to Date: Yes Travel Risk - International Travel Have you traveled outside of the country in past 3 weeks: No - Coronavirus Screening Are you exhibiting any of the following symptoms?: No Close contact with a COVID-19 positive Pt in past 14-21 Days: No - Vaccine Status Have you recieved a Covid-19 vaccination: No - Review of Systems Constitutional: No Symptoms Eyes: No Symptoms Ears, Nose, & Throat: No Symptoms Respiratory: No Symptoms Cardiac: No Symptoms Abdominal/Gastrointestinal: Abdominal Pain (Generalized), Appetite Changes Genitourinary Symptoms: No Symptoms Musculoskeletal: No Symptoms Skin: No Symptoms Neurological: No Symptoms Psychological: No Symptoms Endocrine: No Symptoms Hematologic/Lymphatic: No Symptoms Immunological/Allergic: No Symptoms All Other Systems: Reviewed and Negative - Past Medical History Pertinent Past Medical History: Yes Neurological History: No Pertinent History ENT History: No Pertinent History Cardiac History: Hypertension Respiratory History: Asthma, COPD Endocrine Medical History: No Pertinent History Musculoskeletal History: Osteoarthritis GI Medical History: Colitis, Crohns Disease, Pancreatitis History: No Pertinent History Psycho-Social History: Other Female Reproductive Disorders: No Pertinent History Other Medical History: CROHNS. hx anxiety and depression - Past Surgical History Past Surgical History: Yes Neuro Surgical History: No Pertinent History Cardiac: Other Respiratory: No Pertinent History Gastrointestinal: Colon Resection, Hernia Repair Genitourinary: No Pertinent History Musculoskeletal: No Pertinent History Female Surgical History: Tubal Ligation Other Surgical History: cvl port x2. Colonoscopy. Colostomy and then reversal,. pt denies history of IN. injections in back - Social History Smoking Status: Former smoker How long have you smoked: UNKNOWN Exposure to second hand smoke: No Alcohol Use: None Drug Use: none Patient Lives Alone: No Significant Family History: no pertinent family hx - Nursing Vital Signs Nursing Vital Signs: Initial Vital Signs Temperature 97.8 F 11/04/22 17:16 Pulse Rate 70 11/04/22 17:16 Respiratory Rate 24 11/04/22 17:16 Blood Pressure 172/107 11/04/22 17:16 O2 Sat by Pulse Oximetry 97 11/04/22 17:16 Pain Scale Pain Intensity 2 - Physical Exam General Appearance: mild distress, alert, anxiety Eye Exam: PERRL/EOMI, eyes nml inspection Ears, Nose, Throat Exam: normal ENT inspection, moist mucous membranes Neck Exam: normal inspection, non-tender, supple, full range of motion Respiratory Exam: normal breath sounds, lungs clear, airway intact, No chest tenderness, No respiratory distress Cardiovascular Exam: regular rate/rhythm, normal heart sounds, normal peripheral pulses Gastrointestinal/Abdomen Exam: soft, normal bowel sounds, tenderness Pelvic Exam: not done Rectal Exam: not done Back Exam: normal inspection, normal range of motion, No CVA tenderness, No vertebral tenderness Extremity Exam: normal inspection, normal range of motion, pelvis stable Neurologic Exam: alert, oriented x 3, cooperative, clinical quality analyst II-XII nml as tested, normal mood/affect, nml cerebellar function, nml station & gait, sensation nml Skin Exam: normal color, warm, dry Lymphatic Exam: No adenopathy SpO2 Interpretation: normal SpO2: 97 O2 Delivery: Room Air Ordered Tests: Active Orders 24 hr Category Date Time Status IV Insertion STAT Care 11/04/22 17:21 Active ABDOMEN AND PELVIS W/0 CONTRAS [CT] Stat Exams 11/04/22 17:22 Taken AMYLASE Stat Lab 11/04/22 18:55 Completed CBC W DIFF Stat Lab 11/04/22 18:55 Completed CMP Stat Lab 11/04/22 18:55 Completed LIPASE Stat Lab 11/04/22 18:55 Completed Lactic Acid Stat Lab 11/04/22 18:50 Completed UA W/RFX UR CULTURE Stat Lab 11/04/22 19:55 Received Medication Summary Generic Name Dose Route Start Last Admin Trade Name Freq PRN Reason Stop Dose Admin Sodium Chloride 500 mls @ 500 mls/hr 11/04/22 19:25 11/04/22 19:42 Sodium Chloride 0.9% 500 Ml IV 11/04/22 20:24 500 mls/hr .Q1H ONE Administration Discontinued Medications Generic Name Dose Route Start Last Admin Trade Name Freq PRN Reason Stop Dose Admin Methylprednisolone Sodium 0 mg 11/04/22 19:18 11/04/22 19:42 Succinate 125 mg/ Sterile IV 11/04/22 19:19 125 mg Water 2 ml STAT ONE Administration Hydromorphone HCl 1 mg 11/04/22 17:21 11/04/22 18:34 Hydromorphone 1 Mg/1ml Inj IV 11/04/22 17:22 1 mg STAT ONE Administration Hydromorphone HCl Confirm 11/04/22 18:32 Hydromorphone 1 Mg/1ml Inj Administered 11/04/22 18:33 Dose 1 mg .ROUTE .STK-MED ONE Sodium Chloride 1,000 mls @ 999 mls/hr 11/04/22 17:21 11/04/22 19:53 Sodium Chloride 0.9% 1000 Ml IV 11/04/22 18:21 Infused .Q1H1M STA Infusion Sodium Chloride Confirm 11/04/22 18:32 Sodium Chloride 0.9% 1000 Ml Administered 11/04/22 18:33 Dose 1,000 mls @ ud .ROUTE .STK-MED ONE Sodium Chloride Confirm 11/04/22 19:41 Sodium Chloride 0.9% 500 Ml Administered 11/04/22 19:42 Dose 500 mls @ ud IV .STK-MED ONE Levofloxacin 500 mg 11/04/22 19:19 11/04/22 19:42 Levofloxacin 500 Mg Tablet PO 11/04/22 19:20 500 mg STAT ONE Administration Levofloxacin Confirm 11/04/22 19:40 Levofloxacin 500 Mg Tablet Administered 11/04/22 19:41 Dose 500 mg .ROUTE .STK-MED ONE Methylprednisolone Sodium Succinate Confirm 11/04/22 19:41 Methylprednis Sod Succ 125 Mg/2 Ml Vial Administered 11/04/22 19:42 Dose 125 mg .ROUTE .STK-MED ONE Metronidazole 500 mg 11/04/22 19:19 11/04/22 19:42 Metronidazole 500 Mg Tablet PO 11/04/22 19:20 500 mg STAT ONE Administration Metronidazole Confirm 11/04/22 19:41 Metronidazole 500 Mg Tablet Administered 11/04/22 19:42 Dose 500 mg .ROUTE .STK-MED ONE Potassium Chloride 20 meq 11/04/22 19:18 11/04/22 19:42 Potassium Chloride Tab 10 Meq Tab PO 11/04/22 19:19 20 meq STAT ONE Administration Potassium Chloride Confirm 11/04/22 19:41 Potassium Chloride Tab 10 Meq Tab Administered 11/04/22 19:42 Dose 20 meq PO .STK-MED ONE Prochlorperazine Edisylate 5 mg 11/04/22 17:21 11/04/22 18:34 Prochlorperazine Edisylate 10 Mg/2 Ml Vial IV 11/04/22 17:22 5 mg STAT ONE Administration Prochlorperazine Edisylate Confirm 11/04/22 18:32 Prochlorperazine Edisylate 10 Mg/2 Ml Vial Administered 11/04/22 18:33 Dose 10 mg .ROUTE .STK-MED ONE Sterile Water Confirm 11/04/22 19:40 Water For Injection,Sterile 10 Ml Vial Administered 11/04/22 19:41 Dose 10 ml IJ .STK-MED ONE Lab/Rad Data: Laboratory Result Diagrams 11/04/22 18:55 11/04/22 18:55 Laboratory Results 11/04/22 11/04/22 11/04/22 Range/Units 18:55 18:55 18:50 WBC 16.3 H (4.0-10.5) x10^3/uL RBC 4.57 (4.1-5.4) x10^6/uL Hgb 12.8 (12.0-16.0) g/dL Hct 40.4 (35-47) % MCV 88.4 (78-100) fL MCH 28.0 (26-32) pg MCHC 31.7 L (32-36) g/dL RDW 12.6 (11.5-14.0) % Plt Count 320 (150-450) x10^3/uL MPV 8.7 (7.5-11.0) fL Gran % 83.1 H (36.0-66.0) % Immature Gran % (Auto) 0.4 (0.00-0.4) % Nucleat RBC Rel Count 0.0 (0.00-0.1) % Eos # (Auto) 0.09 (0-0.5) x10^3/uL Immature Gran # (Auto) 0.07 H (0.00-0.03) x10^3u/L Absolute Lymphs (auto) 1.27 (1.0-4.6) x10^3/uL Absolute Monos (auto) 1.28 (0.0-1.3) x10^3/uL Absolute Nucleated RBC 0.00 (0.00-0.01) x10^3u/L Lymphocytes % 7.8 L (24.0-44.0) % Monocytes % 7.9 (0.0-12.0) % Eosinophils % 0.6 (0.00-5.0) % Basophils % 0.2 (0.0-0.4) % Absolute Granulocytes 13.53 H (1.4-6.9) x10^3/uL Basophils # 0.03 (0-0.4) x10^3/uL Sodium 136 L (137-145) mmol/L Potassium 3.1 L (3.5-5.1) mmol/L Chloride 102 (98-107) mmol/L Carbon Dioxide 25 (22-30) mmol/L Anion Gap 13.0 (5-15) MEQ/L BUN 21 H (7-17) mg/dL Creatinine 0.75 (0.52-1.04) mg/dL Estimated GFR > 60.0 ML/MIN Glucose 134 H (74-106) mg/dL Lactic Acid 1.0 (0.4-2.0) Calcium 9.0 (8.4-10.2) mg/dL Total Bilirubin 0.50 (0.2-1.3) mg/dL AST 28 (14-36) U/L ALT 27 (0-35) U/L Alkaline Phosphatase 99 (38-126) U/L Serum Total Protein 7.1 (6.3-8.2) g/dL Albumin 4.1 (3.5-5.0) g/dL Amylase 73 (30-110) U/L Lipase 118 (23-300) U/L - Progress Progress: improved, pain not gone completely Progress Note: 11/04/22 18:55 This patient's medical issue is 1 of moderate complexity. Level complexity in the work-up performed is based on review of the patient's past medical history, review of the patient's medication list, review of the patient's drug allergy list, history present illness and physical findings on examination. The work-up in this patient includes placement of intravenous line, infusion of 1 L of normal saline solution, infusion of 5 mg of intravenous Compazine, 1 mg of intravenous Dilaudid, CBC, CMP, urinalysis, amylase and lipase level as well as CT scan of the abdomen pelvis without contrast. 11/04/22 19:17 I reviewed the laboratory data of this patient. 11/04/22 19:[address] scan of the abdomen pelvis was interpreted by the radiologist and I reviewed the impression. It is as follows: New mild to moderate fluid distended small and right hemicolon with fluid levels. Ileus versus enterocolitis. No free air or free fluid. New small hiatal hernia. 11/04/22 20:03 Clinically, patient states she is feeling much better now. She is able to urinate. Patient verified that she does have oxycodone at home. She will continue taking this medication. Counseled pt/family regarding: lab results, diagnosis, need for follow-up, rad results Medical Desision Making - Diagnostic Testing Diagnostic test were ordered, analyzed, and reviewed by me: Yes Radiological Interpretation: Reviewed by me, Teleradiologist Report - Risk of complications The pt has a mod risk of morbidity or mortality based on: Need for prescription drug management - Departure Departure Disposition: Home Clinical Impression: Abdominal pain, Enterocolitis, Hypokalemia Condition: Stable Critical Care Time: No Referrals: RONA TIAN [Primary Care Provider] - Follow up/PCP as directed Additional Instructions: Drink plenty of clear liquids. Do not advance diet. Tolerated clear liquid well. Take your medications as prescribed. Increase your potassium to 20 mEq daily for 3 days then decrease back to 10 mEq a day thereafter. Call your primary care provider and your speeder machine operator on 11/07/2022 to obtain appointment for further evaluation management. Prescriptions: Promethazine HCl 25 mg [Phenergan 25 mg] 25 mg PO Q8H PRN PRN #10 tablet PRN Reason: Nausea/Vomiting Ciprofloxacin [Cipro 500 MG] 500 mg PO BID #14 tablet Prednisone 10 mg [Deltasone 10 mg] 10 mg PO TID #12 tablet Metronidazole 500 mg [Flagyl 500 MG] 500 mg PO TID #21 tablet
[2022-11-04 17:31] VITALS: RESP 24; TEMP 97.8
[2022-11-04] MEDS ORDERED: Compazine 10 MG/2 ML ONE (18:32)
[2022-11-04] MEDS ORDERED: Sodium Chloride 0.9% 1000 ML 1,000 ML ONE (18:32)
[2022-11-04] MEDS ORDERED: Hydromorphone 1 mg/ml Injection ONE (18:32)
[2022-11-04 18:57] LABS: Absolute Neutrophil Ct (ANC) 13.53 x10^3/uL (1.4-6.9); BASOPHIL % 0.2 % (0.0-0.4); Basophil (Absolute #) 0.03 x10^3/uL (0-0.4); Eosinophil % 0.6 % (0.00-5.0); Eosinophil (Absolute #) 0.09 x10^3/uL (0-0.5); Hematocrit 40.4 % (35-47); Hemoglobin 12.8 g/dL (12.0-16.0); IMMATURE GRAN # 0.07 x10^3u/L (0.00-0.03); IMMATURE GRAN % 0.4 % (0.00-0.4); Lymphocyte (Absolute #) 1.27 x10^3/uL (1.0-4.6); Lymphocytes % 7.8 % (24.0-44.0); Mean Cell Volume 88.4 fL (78-100); Mean Corpuscular Hgb Concent. 31.7 g/dL (32-36); Mean Platelet Volume 8.7 fL (7.5-11.0); Monocyte (Absolute #) 1.28 x10^3/uL (0.0-1.3); Monocytes % 7.9 % (0.0-12.0); Neutrophil % 83.1 % (36.0-66.0); Platelet Count 320 x10^3/uL (150-450); Red Blood Count 4.57 x10^6/uL (4.1-5.4); Red Cell Distribution Width 12.6 % (11.5-14.0); White Blood Count 16.3 x10^3/uL (4.0-10.5)
[2022-11-04 19:10] LABS: ALBUMIN 4.1 g/dL (3.5-5.0); ALKALINE PHOSPHATASE 99 U/L (38-126); AMYLASE 73 U/L (30-110); BLOOD UREA NITROGEN 21 mg/dL (7-17); CHLORIDE 102 mmol/L (98-107); Carbon Dioxide 25 mmol/L (22-30); Creatinine 1 0.75 mg/dL (0.52-1.04); EST GLOMERULAR FILTRATION RATE > 60.0 ML/MIN; Glucose 134 mg/dL (74-106); LIPASE 118 U/L (23-300); Potassium 3.1 mmol/L (3.5-5.1); SGOT/AST 28 U/L (14-36); SGPT/ALT 27 U/L (0-35); SODIUM 136 mmol/L (137-145); Total Protein 7.1 g/dL (6.3-8.2)
[2022-11-04] MEDS ORDERED: solu-MEDROL 125 MG, Sterile H2O 10 ml 2 ML IV ONE ×2 (19:18)
[2022-11-04] MEDS ORDERED: Klor Con PO ONE ×2 (19:18→19:41)
[2022-11-04] MEDS ORDERED: Levofloxacin 500 MG Tablet PO ONE (19:19)
[2022-11-04] MEDS ORDERED: Flagyl 500 MG PO ONE (19:19)
[2022-11-04] MEDS ORDERED: Sodium Chloride 0.9% 500 ML 500 ML IV ONE ×2 (19:25→19:41)
[2022-11-04] MEDS ORDERED: Sterile H2O 10 ml IJ ONE (19:40)
[2022-11-04] MEDS ORDERED: Levofloxacin 500 MG Tablet ONE (19:40)
[2022-11-04] MEDS ORDERED: Flagyl 500 MG ONE (19:41)
[2022-11-04] MEDS ORDERED: solu-MEDROL ONE (19:41)
[2022-11-04 20:10] LABS: Appearance Clear (Clear); Bacteria None Seen /HPF (None Seen); Bilirubin Negative (Negative); Blood Negative (Negative); Epithelial Cells None Seen /HPF (None Seen); Glucose, Urine Negative (Negative); Hyaline Casts NONE SEEN /LPF (0-2); Ketones 15 (Negative); Leukocyte Esterase Small (Negative); Nitrite Negative (Negative); Ph 5.5 (4.6-8.0); Protein,Urine Dip Trace (Negative); Specific Gravity >=1.030 (1.005-1.030); Urobilinogen 0.2 mg/dL (0.2)
[2022-11-04 20:11] LABS: ADD URINE CULTURE? YES (NO)
--- NOTE | 2022-11-04 20:49 | XRAY ---
Indication: Abdomen pain. History of Crohn's disease. Multiple contiguous axial images obtained through the abdomen and pelvis without contrast. Comparison: March 25, 2019 Study is slightly degraded by respiration artifact. Lung bases again demonstrates minimal lingula fibrosis/scarring. No infiltrate or effusion. Heart not enlarged. New small hiatal hernia. New fluid distended small bowel loops up to 4 cm with fluid leveling. Also fluid distended ascending and transverse colon also with fluid level. Findings either ileus versus enterocolitis. Normal distal colonic bowel gas. Stable small left upper renal cortical cyst and cholecystectomy clips. No free fluid/air. Remaining liver, pancreas, spleen, adrenal glands, kidneys, ureters, bladder, uterus, and aorta are unremarkable for noncontrast exam. Osseous structures intact with mild degenerative changes visualized lower thoracic spine. Impression: 1. Respiration artifact. 2. New fluid distended small bowel loops and right hemicolon with fluid leveling, ileus versus enterocolitis. 3. New small hiatal hernia. 4. Stable incidental left renal cyst.
[2022-11-04 21:05] VITALS: BP 106/57; PULSE 76; O2SAT 98
== END 2022-11-04 21:05 | disposition home or self-care (01) ==
LOC: ED 17:09
DX: K52.9 Noninfective gastroenteritis and colitis, unspecified (principal); R10.84 Generalized abdominal pain; E87.6 Hypokalemia; N39.0 Urinary tract infection, site not specified; I10 Essential (primary) hypertension; K50.90 Crohn's disease, unspecified, without complications; Z79.52 Long term (current) use of systemic steroids; Z79.891 Long term (current) use of opiate analgesic; Z79.899 Other long term (current) drug therapy; Z28.310 Unvaccinated for COVID-19
CPT/HCPCS: 36415; 74176; 80053; 81001; 82150; 83605; 83690; 85025; 87077; 87086; 87186; 96360; 96361; 96374; 96375; 99284; J1170; J1642; J2930; A9270-GY

== ENCOUNTER 2023-07-19 16:23 | Day surgery (SDC) | payer MEDICARE ==
[2012-11-09 10:35] VITALS: BP 129/87
[2023-07-19] MEDS ORDERED: Xylocaine-Mpf 2% 5 Ml Vial IJ ONE (16:24)
[2023-07-19] MEDS ORDERED: XYLOCAINE-MPF 1% 5ML SDV IJ ONE (16:24)
[2023-07-19] MEDS ORDERED: Lactated Ringers 1,000 ML IV ONE (17:21)
--- NOTE | 2023-07-19 20:06 | XRAY ---
Indication: Right C2-C4 MBB. Intraoperative fluoroscopy provided for 16 seconds. 2 digital spot images submitted for interpretation demonstrates posterior needle tips projecting over the expected right C2-C4 nerve roots. Correlate with intraoperative findings/report.
--- NOTE | 2023-07-20 09:19 | XRAY ---
16 seconds of fluoroscopy was used in surgery for a right C2-C4 MBB.
== END 2023-07-19 18:15 | disposition home or self-care (01) ==
LOC: SDC-PAIN 16:23
PROVIDERS: ATTEND Psychiatry & Neurology Pain Medicine
DX: M47.812 Spondylosis without myelopathy or radiculopathy, cervical region (principal)
CPT/HCPCS: 64490; 64491; 72040; 77002; J1642

== ENCOUNTER 2023-08-30 16:01 | Day surgery (SDC) | payer MEDICARE ==
[2012-11-09 10:35] VITALS: BP 129/87
[2023-08-30] MEDS ORDERED: BUPIVACAINE 0.5% VIAL IJ ONE (16:02)
[2023-08-30] MEDS ORDERED: LIDOCAINE HCL 1% 50 MG/5 ML VL PF IJ ONE (16:02)
[2023-08-30] MEDS ORDERED: Lactated Ringers 1,000 ML IV ONE (17:26)
--- NOTE | 2023-08-30 19:10 | XRAY ---
Indication: Right C2-C4 MBB. Intraoperative fluoroscopy provided for 15 seconds. 2 digital spot images submitted for interpretation demonstrates posterior needle tips projecting over expected right C2-C4 nerve roots. Correlate with intraoperative findings/report.
--- NOTE | 2023-09-01 07:57 | XRAY ---
15 seconds of fluoroscopy was used in surgery for a right C2-C4 MBB.
== END 2023-08-30 18:30 | disposition home or self-care (01) ==
LOC: SDC-PAIN 16:01
PROVIDERS: ATTEND Psychiatry & Neurology Pain Medicine
DX: M47.812 Spondylosis without myelopathy or radiculopathy, cervical region (principal)
CPT/HCPCS: 64490; 64491; 72040; 77002; J1642; J2001

== ENCOUNTER 2023-10-04 14:54 | Day surgery (SDC) | payer MEDICARE ==
[2012-11-09 10:35] VITALS: BP 129/87
[2023-10-04] MEDS ORDERED: LIDOCAINE HCL 1% 50 MG/5 ML VL PF IJ ONE (14:55)
[2023-10-04] MEDS ORDERED: Xylocaine-Mpf 2% 5 Ml Vial IJ ONE (14:55)
[2023-10-04] MEDS ORDERED: Lactated Ringers 1,000 ML IV ONE (16:31)
--- NOTE | 2023-10-05 08:46 | XRAY ---
Indication: Left C2-C4 MBB. Intraoperative fluoroscopy provided for 21 seconds. 2 digital spot images submitted for interpretation demonstrates posterior needle tips projecting over the expected left C2-C4 nerve roots. Correlate with intraoperative findings/report.
--- NOTE | 2023-10-05 08:52 | XRAY ---
21 seconds of fluoroscopy was used in surgery for a left C2-C4 MBB.
== END 2023-10-04 16:43 | disposition home or self-care (01) ==
LOC: SDC-PAIN 14:54
PROVIDERS: ATTEND Psychiatry & Neurology Pain Medicine
DX: M47.812 Spondylosis without myelopathy or radiculopathy, cervical region (principal)
CPT/HCPCS: 64490; 64491; 72040; 77002; J1642; J2001

== ENCOUNTER 2023-11-08 15:38 | Day surgery (SDC) | payer MEDICARE ==
[2012-11-09 10:35] VITALS: BP 129/87
[2023-11-08] MEDS ORDERED: LIDOCAINE HCL 1% 50 MG/5 ML VL PF IJ ONE (15:39)
[2023-11-08] MEDS ORDERED: BUPIVACAINE 0.5% VIAL IJ ONE (15:39)
[2023-11-08] MEDS ORDERED: Lactated Ringers 1,000 ML IV ONE (17:04)
--- NOTE | 2023-11-08 17:09 | XRAY ---
13 seconds of fluoroscopy was used in surgery for a left C2-C4 MBB.
--- NOTE | 2023-11-08 17:09 | XRAY ---
Indication: Left C2-C4 MBB. Intraoperative fluoroscopy provided for 13 seconds. 2 digital spot images submitted for interpretation demonstrates posterior needle tips projecting over expected left C2-C4 nerve roots. Correlate with intraoperative findings/report.
== END 2023-11-08 16:52 | disposition home or self-care (01) ==
LOC: SDC-PAIN 15:38
PROVIDERS: ATTEND Psychiatry & Neurology Pain Medicine
DX: M47.812 Spondylosis without myelopathy or radiculopathy, cervical region (principal)
CPT/HCPCS: 64490; 64491; 72040; 77002; J1642; J2001

== ENCOUNTER 2023-12-13 14:47 | Day surgery (SDC) | payer MEDICARE ==
[2012-11-09 10:35] VITALS: BP 129/87
[2023-12-13] MEDS ORDERED: LIDOCAINE HCL 1% AMPUL 5 ML IJ ONE (14:48)
[2023-12-13] MEDS ORDERED: BUPIVACAINE 0.5% VIAL IJ ONE (14:48)
--- NOTE | 2023-12-13 18:22 | XRAY ---
Indication: Right C2-C4 RFA. Intraoperative fluoroscopy provided for 17 seconds. 3 digital spot image submitted for interpretation demonstrates posterior needle tips projecting over expected right C2-C4 nerve roots. Correlate with intraoperative findings/report.
--- NOTE | 2023-12-14 08:37 | XRAY ---
17 seconds of fluoroscopy was used in surgery for a right C2-C4 RFA.
== END 2023-12-13 17:55 | disposition home or self-care (01) ==
LOC: SDC-PAIN 14:47
PROVIDERS: ATTEND Psychiatry & Neurology Pain Medicine
DX: M47.812 Spondylosis without myelopathy or radiculopathy, cervical region (principal)
CPT/HCPCS: 64633; 64634; 72040; 77002; J1642

== ENCOUNTER 2023-12-20 15:04 | Day surgery (SDC) | payer MEDICARE, SELFPAY ==
[2012-11-09 10:35] VITALS: BP 129/87
[2023-12-20] MEDS ORDERED: LIDOCAINE HCL 1% AMPUL 5 ML IJ ONE (15:05)
[2023-12-20] MEDS ORDERED: Decadron 4 MG INJ IV ONE (15:05)
[2023-12-20] MEDS ORDERED: BUPIVACAINE 0.5% VIAL IJ ONE (15:05)
--- NOTE | 2023-12-20 20:47 | XRAY ---
Indication: Left C2-C4 RFA. Intraoperative fluoroscopy provided for 29 seconds. 3 digital spot images submitted for interpretation demonstrates posterior needle tips projecting over the expected left C2-C4 nerve roots. Correlate with intraoperative findings/report.
--- NOTE | 2023-12-21 09:54 | XRAY ---
29 seconds of fluoroscopy were used in surgery for a left C2-C4 RFA.
== END 2023-12-20 17:20 | disposition home or self-care (01) ==
LOC: SDC-PAIN 15:04
PROVIDERS: ATTEND Psychiatry & Neurology Pain Medicine
DX: M47.812 Spondylosis without myelopathy or radiculopathy, cervical region (principal)
CPT/HCPCS: 64633; 64634; 72040; 77002; J1100; J1642

== ENCOUNTER 2024-03-13 13:40 | Day surgery (SDC) | payer MEDICARE ==
[2012-11-09 10:35] VITALS: BP 129/87
[2024-03-13] MEDS ORDERED: dexAMETHasone sodium phosphate IV ONE (13:41)
[2024-03-13] MEDS ORDERED: Depo-Medrol 40 MG/ML IM ONE (13:41)
[2024-03-13] MEDS ORDERED: BUPIVACAINE 0.5% VIAL IJ ONE (13:41)
--- NOTE | 2024-03-13 16:58 | XRAY ---
Indication: Right SI joint and piriformis injection. Intraoperative fluoroscopy provided for 38 seconds. 3 digital spot image submitted for interpretation demonstrates posterior needle tips projecting over right SI joint and right piriformis. Small amount of contrast injected for both needle tip placement. Correlate with intraoperative findings/report.
--- NOTE | 2024-03-13 17:20 | XRAY ---
38 seconds of fluoroscopy was used in surgery for a right sacroiliac joint and piriformis injection.
== END 2024-03-13 15:36 | disposition home or self-care (01) ==
LOC: SDC-PAIN 13:40
PROVIDERS: ATTEND Psychiatry & Neurology Pain Medicine
DX: M46.1 Sacroiliitis, not elsewhere classified (principal); M79.18 Myalgia, other site
CPT/HCPCS: 20552; 27096; 72170; 77002; J1100; Q9966

== ENCOUNTER 2024-06-19 15:45 | Day surgery (SDC) | payer MEDICARE ==
[2012-11-09 10:35] VITALS: BP 129/87
[2024-06-19] MEDS ORDERED: LIDOCAINE HCL 1% AMPUL 5 ML IJ ONE (15:46)
[2024-06-19] MEDS ORDERED: BUPIVACAINE 0.5% VIAL IJ ONE (15:46)
[2024-06-19] MEDS ORDERED: Depo-Medrol 40 MG/ML IM ONE (15:46)
--- NOTE | 2024-06-19 20:17 | XRAY ---
Indication: Bilateral hip injection. Intraoperative fluoroscopy provided for 21 seconds. 3 digital spot images submitted for interpretation demonstrates needle tips projecting lateral to left and right femur necks. Small amount of contrast injected for needle tip placement. Correlate with intraoperative findings/report.
--- NOTE | 2024-06-19 21:52 | XRAY ---
21 seconds of fluoroscopy were used in surgery for bilateral intra-articular hip injections.
== END 2024-06-19 18:35 | disposition home or self-care (01) ==
LOC: SDC-PAIN 15:45
PROVIDERS: ATTEND Psychiatry & Neurology Pain Medicine
DX: M16.0 Bilateral primary osteoarthritis of hip (principal)
CPT/HCPCS: 20610; 73521; 77002; Q9966